=== PATIENT | female | born 1985 | race Caucasian/White ===

== ENCOUNTER → 2021-03-16 | Outpatient (CLI) | payer SELFPAY ==
[2021-03-16 20:08] LABS: ALBUMIN 3.9 GM/DL (3.2-5.2); ALT/SGPT 58 U/L (12-78); BILIRUBIN,TOTAL 0.6 MG/DL (0.2-1.0); BLOOD UREA NITROGEN 12 MG/DL (7-18); CALCIUM LEVEL 9.5 MG/DL (8.5-10.1); CARBON DIOXIDE LEVEL 32 MEQ/L (21-32); CHLORIDE LEVEL 101 MEQ/L (98-107); CREATININE FOR GFR 0.77 MG/DL (0.55-1.30); FREE T4 0.92 NG/DL (0.76-1.46); GLOMERULAR FILTRATION RATE > 60.0 (>60); GLUCOSE, FASTING 96 MG/DL (70-100); POTASSIUM SERUM 4.3 MEQ/L (3.5-5.1); SODIUM LEVEL 138 MEQ/L (136-145); TOTAL PROTEIN 7.8 GM/DL (6.4-8.2)
[2021-03-16 20:09] LABS: HEPATITIS B SURFACE ANTIBODY POSITIVE (POSITIVE)
[2021-03-16 20:20] LABS: HEPATITIS B SURFACE ANTIGEN NEGATIVE (NEGATIVE)
[2021-03-16 20:48] LABS: HEPATITIS C VIRUS ABY INDEX < 0.0 INDEX (<0.8)
[2021-03-16 23:35] LABS: GC DNA AMPLIFICATION NEGATIVE (NEGATIVE)
[2021-03-19 03:07] LABS: % CD8 Pos Lymph 45.4 % (12.0-35.5); %CD4 Pos Lymphs 34.5 % (30.8-58.5); ABS Basophils 0.1 x10E3/uL (0.0-0.2); ABS Eosinophils 0.1 x10E3/uL (0.0-0.4); ABS Lymphs 2.8 x10E3/uL (0.7-3.1); ABS Monocytes 0.6 x10E3/uL (0.1-0.9); ABS Neutophils 5.8 x10E3/uL (1.4-7.0); Abs CD4 Helper 966 /uL (359-1519); Abs CD8 Suppres 1271 /uL (109-897); CD4/CD8 Ratio 0.76 (0.92-3.72); Eosinophils 1 % (Not Estab.); HCT 43.3 % (34.0-46.6); HEPATITIS A IgG TOTAL Positive (Negative); HEPATITIS B CORE ANTIBODY IGG Negative (Negative); HGB 14.7 g/dL (11.1-15.9); HIV-1 RNA PCR QUANT 2 LC550285 <20 copies/mL (.); Immature Grans 0 % (Not Estab.); Lymphocytes 30 % (Not Estab.); MCH 33.5 pg (26.6-33.0); MCHC 33.9 g/dL (31.5-35.7); MCV 99 fL (79-97); Monocytes 7 % (Not Estab.); Neutrophils 61 % (Not Estab.); Platelets 317 x10E3/uL (150-450); RBC 4.39 x10E6/uL (3.77-5.28); RDW 12.7 % (11.7-15.4); WBC 9.4 x10E3/uL (3.4-10.8)
== END ==
LOC: M PLALAB 13:03
PROVIDERS: ATTEND Internal Medicine Infectious Disease
DX: B20 Human immunodeficiency virus [HIV] disease (principal)

== ENCOUNTER 2021-06-16 19:07 | Emergency (ER) | payer MEDICARE, SELFPAY ==
[~2021-06-16] VITALS: Ht 162.6 cm; Wt 118.2 kg
[2021-06-16] MEDS ORDERED: ONDANSETRON 4MG/2ML VIAL IV ONE (22:15)
[2021-06-16] MEDS ORDERED: KETOROLAC 30 MG/ML 1ML VIAL IV ONE (22:15)
[2021-06-16 22:45] LABS: BASO % 0.5 % (0.0-1.0); EOS # 0.1 10^3/uL (0.0-0.5); EOS % 1.1 % (0.0-3.0); HEMATOCRIT 40.3 % (36.0-47.0); LYMPH # 2.6 10^3/uL (1.5-5.0); LYMPH % 32.8 % (24.0-44.0); MEAN CORPUSCULAR HEMOGLOBIN 33.4 pg (27.0-33.0); MEAN CORPUSCULAR HGB CONC 32.3 g/dl (32.0-36.5); MEAN CORPUSCULAR VOLUME 103.6 fl (80.0-96.0); MONO # 0.5 10^3/uL (0.0-0.8); MONO % 6.7 % (2.0-8.0); NEUTROPHILS # 4.6 10^3/uL (1.5-8.5); NEUTROPHILS % 58.8 % (36.0-66.0); PLATELET COUNT, AUTOMATED 263 10^3/uL (150-450); RED BLOOD COUNT 3.89 10^6/uL (4.00-5.40); WHITE BLOOD COUNT 7.9 10^3/uL (4.0-10.0)
[2021-06-16 23:09] LABS: ALBUMIN 3.5 GM/DL (3.2-5.2); ALT/SGPT 45 U/L (12-78); BILIRUBIN,DIRECT 0.1 MG/DL (0.0-0.2); BILIRUBIN,TOTAL 0.3 MG/DL (0.2-1.0); BLOOD UREA NITROGEN 8 MG/DL (7-18); CALCIUM LEVEL 8.4 MG/DL (8.5-10.1); CARBON DIOXIDE LEVEL 30 MEQ/L (21-32); CHLORIDE LEVEL 102 MEQ/L (98-107); CREATININE FOR GFR 0.69 MG/DL (0.55-1.30); GLOMERULAR FILTRATION RATE > 60.0 (>60); GLUCOSE, FASTING 108 MG/DL (70-100); LIPASE 78 U/L (73-393); POTASSIUM SERUM 3.8 MEQ/L (3.5-5.1); SODIUM LEVEL 138 MEQ/L (136-145); TOTAL PROTEIN 7.2 GM/DL (6.4-8.2)
[2021-06-16 23:26] LABS: HCG, SERUM QUALITATIVE NEGATIVE (NEGATIVE)
[2021-06-17 00:09] LABS: GC DNA AMPLIFICATION NEGATIVE (NEGATIVE)
[2021-06-17 00:45] VITALS: BP 135/71
== END 2021-06-17 01:04 | disposition home or self-care (01) ==
LOC: M ED 19:07
DX: R10.2 Pelvic and perineal pain (principal); B20 Human immunodeficiency virus [HIV] disease; E66.9 Obesity, unspecified; F31.9 Bipolar disorder, unspecified; N83.291 Other ovarian cyst, right side; Z88.8 Allergy status to other drugs, medicaments and biological substances
CPT/HCPCS: 76856; 80048; 80076; 81001; 83690; 84703; 85025; 87210; 87808; 87810; 87850; 93976; 96374; 96375; 99284; J1885; J2405

== ENCOUNTER → 2021-10-12 | Outpatient (CLI) | payer MEDICARE ==
[2021-10-12 16:15] LABS: BASO # 0.1 10^3/uL (0.0-0.2); BASO % 0.6 % (0.0-1.0); EOS # 0.1 10^3/uL (0.0-0.5); EOS % 0.8 % (0.0-3.0); HEMATOCRIT 41.6 % (36.0-47.0); HEMOGLOBIN 13.3 g/dl (12.0-15.5); LYMPH # 2.8 10^3/uL (1.5-5.0); LYMPH % 32.2 % (24.0-44.0); MEAN CORPUSCULAR HEMOGLOBIN 33.6 pg (27.0-33.0); MEAN CORPUSCULAR VOLUME 105.1 fl (80.0-96.0); MONO # 0.5 10^3/uL (0.0-0.8); MONO % 6.1 % (2.0-8.0); NEUTROPHILS # 5.1 10^3/uL (1.5-8.5); NEUTROPHILS % 59.9 % (36.0-66.0); PLATELET COUNT, AUTOMATED 304 10^3/uL (150-450); RED BLOOD COUNT 3.96 10^6/uL (4.00-5.40); WHITE BLOOD COUNT 8.5 10^3/uL (4.0-10.0)
[2021-10-12 16:49] LABS: ALBUMIN 3.7 GM/DL (3.2-5.2); ALT/SGPT 37 U/L (12-78); BILIRUBIN,TOTAL 0.3 MG/DL (0.2-1.0); BLOOD UREA NITROGEN 10 MG/DL (7-18); CALCIUM LEVEL 9.4 MG/DL (8.5-10.1); CARBON DIOXIDE LEVEL 29 MEQ/L (21-32); CHLORIDE LEVEL 105 MEQ/L (98-107); CREATININE FOR GFR 0.68 MG/DL (0.55-1.30); FERRITIN 47 NG/ML (8-252); FREE T4 0.85 NG/DL (0.76-1.46); GLOMERULAR FILTRATION RATE > 60.0 (>60); GLUCOSE, FASTING 90 MG/DL (70-100); POTASSIUM SERUM 4.1 MEQ/L (3.5-5.1); SODIUM LEVEL 140 MEQ/L (136-145); TOTAL PROTEIN 7.6 GM/DL (6.4-8.2)
[2021-10-12 16:50] LABS: TOTAL 25(OH) VITAMIN D 18.7 NG/ML (30.0-100.0); VITAMIN B12 LEVEL 291 PG/ML (247-911)
== END ==
LOC: M PLALAB 13:05
PROVIDERS: ATTEND Internal Medicine Hematology
DX: F31.4 Bipolar disorder, current episode depressed, severe, without psychotic features (principal); B20 Human immunodeficiency virus [HIV] disease; Z79.899 Other long term (current) drug therapy

== ENCOUNTER → 2021-10-12 | Outpatient (CLI) | payer MEDICARE ==
[2021-10-12 16:12] LABS: APPEARANCE, URINE CLEAR (CLEAR); BACTERIA, URINE AUTO NEGATIVE (NEGATIVE); BILIRUBIN, URINE AUTO NEGATIVE (NEGATIVE); BLOOD, URINE BLOOD NEGATIVE (NEGATIVE); COLOR, URINE YELLOW (YELLOW); GLUCOSE, URINE (UA) AUTO NEGATIVE (NEGATIVE); KETONE, URINE AUTO NEGATIVE (NEGATIVE); LEUKOCYTE ESTERASE, URINE AUTO NEGATIVE (NEGATIVE); NITRITE, URINE AUTO NEGATIVE (NEGATIVE); PROTEIN, URINE AUTO NEGATIVE (NEGATIVE); RBC, URINE AUTO 1 /HPF (0-3); SPECIFIC GRAVITY URINE AUTO 1.018 (1.002-1.035); SQUAMOUS EPITHELIAL CELL UR AU 1 /HPF (0-6); UROBILINOGEN, URINE AUTO 0.2 mg/dL (0.0-2.0); WBC, URINE AUTO 0 /HPF (0-3)
[2021-10-12 17:49] LABS: GC DNA AMPLIFICATION NEGATIVE (NEGATIVE)
[2021-10-16 07:08] LABS: % CD8 Pos Lymph 44.1 % (12.0-35.5); %CD4 Pos Lymphs 37.2 % (30.8-58.5); ABS Eosinophils 0.1 x10E3/uL (0.0-0.4); ABS Lymphs 2.6 x10E3/uL (0.7-3.1); ABS Monocytes 0.5 x10E3/uL (0.1-0.9); ABS Neutophils 4.9 x10E3/uL (1.4-7.0); Abs CD4 Helper 967 /uL (359-1519); Abs CD8 Suppres 1147 /uL (109-897); CD4/CD8 Ratio 0.84 (0.92-3.72); Eosinophils 1 % (Not Estab.); HCT 39.8 % (34.0-46.6); HGB 13.3 g/dL (11.1-15.9); HIV-1 RNA PCR QUANT 2 LC550285 <20 copies/mL (.); Immature Grans 0 % (Not Estab.); Lymphocytes 32 % (Not Estab.); MCH 33.6 pg (26.6-33.0); MCHC 33.4 g/dL (31.5-35.7); MCV 101 fL (79-97); Monocytes 6 % (Not Estab.); Neutrophils 60 % (Not Estab.); Platelets 313 x10E3/uL (150-450); RBC 3.96 x10E6/uL (3.77-5.28); RDW 12.4 % (11.7-15.4); WBC 8.1 x10E3/uL (3.4-10.8)
== END ==
LOC: M PLALAB 13:08
PROVIDERS: ATTEND Internal Medicine Infectious Disease
DX: B20 Human immunodeficiency virus [HIV] disease (principal); R30.0 Dysuria

== ENCOUNTER 2021-11-06 17:16 | Emergency (ER) | payer MEDICARE ==
[~2021-11-06] VITALS: Ht 162.6 cm; Wt 114.2 kg
[2021-11-06 22:33] VITALS: BP 116/67
== END 2021-11-06 22:35 | disposition home or self-care (01) ==
LOC: M ED 17:16
DX: S61.218A Laceration without foreign body of other finger without damage to nail, initial encounter (principal); W26.0XXA Contact with knife, initial encounter; Y92.89 Other specified places as the place of occurrence of the external cause; Y99.0 Civilian activity done for income or pay; B20 Human immunodeficiency virus [HIV] disease; F90.9 Attention-deficit hyperactivity disorder, unspecified type; Z88.8 Allergy status to other drugs, medicaments and biological substances

== ENCOUNTER 2021-11-12 21:20 | Emergency (ER) | payer MEDICARE ==
[~2021-11-12] VITALS: Ht 162.6 cm; Wt 113.6 kg
[2021-11-12] MEDS ORDERED: DULO1CAP5 PO (23:11)
[2021-11-12] MEDS ORDERED: TRAZ-252 PO (23:11)
[2021-11-12] MEDS ORDERED: CLON0.5T2 PO (23:11)
[2021-11-12] MEDS ORDERED: BIKT1TAB PO (23:11)
[2021-11-13 01:39] VITALS: BP 118/58
== END 2021-11-13 01:41 | disposition home or self-care (01) ==
LOC: M ED 21:20
DX: F41.0 Panic disorder [episodic paroxysmal anxiety] (principal); B20 Human immunodeficiency virus [HIV] disease; Z88.8 Allergy status to other drugs, medicaments and biological substances

== ENCOUNTER 2021-12-05 07:48 | Emergency (ER) | payer MEDICARE ==
[~2021-12-05] VITALS: Ht 165.1 cm; Wt 115.7 kg
[~2021-12-05 07:48] MED LIST: BIKT1TAB PO; CLON0.5T2 PO; DULO1CAP5 PO; TRAZ-252 PO
[2021-12-05] MEDS ORDERED: NS 1,000 ML IV ONE (09:25)
[2021-12-05 10:14] LABS: BASO % 0.4 % (0.0-1.0); EOS # 0.1 10^3/uL (0.0-0.5); EOS % 1.1 % (0.0-3.0); HEMATOCRIT 39.7 % (36.0-47.0); LYMPH % 30.6 % (24.0-44.0); MEAN CORPUSCULAR HEMOGLOBIN 34.7 pg (27.0-33.0); MEAN CORPUSCULAR HGB CONC 32.7 g/dl (32.0-36.5); MEAN CORPUSCULAR VOLUME 105.9 fl (80.0-96.0); MONO # 0.6 10^3/uL (0.0-0.8); MONO % 6.2 % (2.0-8.0); NEUTROPHILS # 5.9 10^3/uL (1.5-8.5); NEUTROPHILS % 61.4 % (36.0-66.0); PLATELET COUNT, AUTOMATED 276 10^3/uL (150-450); RED BLOOD COUNT 3.75 10^6/uL (4.00-5.40); WHITE BLOOD COUNT 9.7 10^3/uL (4.0-10.0)
[2021-12-05 10:42] LABS: CK-MB VALUE MASS 2.7 NG/ML (<3.6); MB/CK RELATIVE INDEX 0.95 (< OR =4)
[2021-12-05 12:10] LABS: GC DNA AMPLIFICATION NEGATIVE (NEGATIVE)
[2021-12-05 12:43] VITALS: BP 128/80
== END 2021-12-05 12:46 | disposition home or self-care (01) ==
LOC: M ED 07:48
DX: R10.2 Pelvic and perineal pain (principal); R07.9 Chest pain, unspecified; B20 Human immunodeficiency virus [HIV] disease; Z79.899 Other long term (current) drug therapy; Z88.8 Allergy status to other drugs, medicaments and biological substances

== ENCOUNTER 2021-12-19 18:41 | Emergency (ER) | payer MEDICARE ==
[~2021-12-19] VITALS: Ht 162.6 cm; Wt 113.6 kg
[2021-12-19 18:42] VITALS: BP 126/71
[2021-12-19 20:34] LABS: BASO # 0.1 10^3/uL (0.0-0.2); BASO % 0.7 % (0.0-1.0); EOS # 0.1 10^3/uL (0.0-0.5); EOS % 1.5 % (0.0-3.0); HEMATOCRIT 39.7 % (36.0-47.0); HEMOGLOBIN 12.8 g/dl (12.0-15.5); LYMPH # 2.8 10^3/uL (1.5-5.0); LYMPH % 32.2 % (24.0-44.0); MEAN CORPUSCULAR HEMOGLOBIN 34.4 pg (27.0-33.0); MEAN CORPUSCULAR HGB CONC 32.2 g/dl (32.0-36.5); MEAN CORPUSCULAR VOLUME 106.7 fl (80.0-96.0); MONO # 0.6 10^3/uL (0.0-0.8); MONO % 6.7 % (2.0-8.0); NEUTROPHILS # 5.2 10^3/uL (1.5-8.5); NEUTROPHILS % 58.7 % (36.0-66.0); PLATELET COUNT, AUTOMATED 258 10^3/uL (150-450); RED BLOOD COUNT 3.72 10^6/uL (4.00-5.40); WHITE BLOOD COUNT 8.8 10^3/uL (4.0-10.0)
[2021-12-19 20:59] LABS: ALBUMIN 3.4 GM/DL (3.2-5.2); ALT/SGPT 35 U/L (12-78); BILIRUBIN,DIRECT < 0.1 MG/DL (0.0-0.2); BILIRUBIN,TOTAL 0.2 MG/DL (0.2-1.0); LIPASE 98 U/L (73-393); TOTAL PROTEIN 7.1 GM/DL (6.4-8.2)
== END 2021-12-19 21:23 | disposition home or self-care (01) ==
LOC: M ED 18:41
DX: R11.2 Nausea with vomiting, unspecified (principal); M54.50 Low back pain, unspecified; E66.9 Obesity, unspecified; Z79.899 Other long term (current) drug therapy; Z88.8 Allergy status to other drugs, medicaments and biological substances

== ENCOUNTER 2021-12-24 17:41 | Emergency (ER) | payer MEDICARE ==
[~2021-12-24] VITALS: Ht 162.6 cm; Wt 118.0 kg
[2021-12-24 17:41] VITALS: BP 114/60
== END 2021-12-24 22:07 | disposition home or self-care (01) ==
LOC: M ED 17:41
DX: F41.0 Panic disorder [episodic paroxysmal anxiety] (principal); B20 Human immunodeficiency virus [HIV] disease; F31.9 Bipolar disorder, unspecified; F44.5 Conversion disorder with seizures or convulsions; F19.10 Other psychoactive substance abuse, uncomplicated; Z79.899 Other long term (current) drug therapy; Z88.8 Allergy status to other drugs, medicaments and biological substances

== ENCOUNTER 2022-02-13 14:01 | Emergency (ER) | payer MEDICARE ==
[~2022-02-13] VITALS: Ht 162.6 cm; Wt 115.0 kg
[2022-02-13] MEDS ORDERED: NS 1,000 ML IV ONE (15:05)
[2022-02-13] MEDS ORDERED: diphenhydrAMINE 50MG/ML VIAL (J1200) IV ONE (15:05)
[2022-02-13] MEDS ORDERED: KETOROLAC 30 MG/ML 1ML VIAL IM ONE (15:05)
[2022-02-13] MEDS ORDERED: METOCLOPRAMIDE INJ 10MG/2ML VIAL (J2765 PER 1) IV ONE (15:05)
[2022-02-13 15:25] LABS: RSV AMPLIFICATION NEGATIVE (NEGATIVE)
[2022-02-13 16:30] VITALS: BP 99/53
== END 2022-02-13 16:32 | disposition home or self-care (01) ==
LOC: M ED 14:01
DX: G43.909 Migraine, unspecified, not intractable, without status migrainosus (principal); B20 Human immunodeficiency virus [HIV] disease; J30.2 Other seasonal allergic rhinitis; F90.9 Attention-deficit hyperactivity disorder, unspecified type; F41.0 Panic disorder [episodic paroxysmal anxiety]; F31.9 Bipolar disorder, unspecified; F10.11 Alcohol abuse, in remission; Z79.899 Other long term (current) drug therapy; Z88.8 Allergy status to other drugs, medicaments and biological substances
CPT/HCPCS: 87631; 90471; 96361; 96374; 96375; 99284; J1200; J1885; J2765

== ENCOUNTER 2022-04-16 08:26 | Emergency (ER) | payer MEDICARE ==
[~2022-04-16] VITALS: Ht 162.6 cm; Wt 109.1 kg
[2022-04-16] MEDS ORDERED: IBUP200C25 PO (08:39)
[2022-04-16 12:48] VITALS: BP 113/74
== END 2022-04-16 12:49 | disposition home or self-care (01) ==
LOC: M ED 08:26
DX: R20.2 Paresthesia of skin (principal); H52.531 Spasm of accommodation, right eye; B20 Human immunodeficiency virus [HIV] disease; R56.9 Unspecified convulsions; F19.10 Other psychoactive substance abuse, uncomplicated; Z86.73 Personal history of transient ischemic attack (TIA), and cerebral infarction without residual deficits; Z82.49 Family history of ischemic heart disease and other diseases of the circulatory system; Z82.3 Family history of stroke; Z83.3 Family history of diabetes mellitus; Z88.8 Allergy status to other drugs, medicaments and biological substances

== ENCOUNTER 2022-05-04 15:41 | Emergency (ER) | payer MEDICARE ==
[~2022-05-04] VITALS: Ht 162.6 cm; Wt 116.3 kg
[~2022-05-04 15:41] MED LIST changes: +IBUP200C25 PO
[2022-05-04 17:38] VITALS: BP 116/80
== END 2022-05-04 17:39 | disposition home or self-care (01) ==
LOC: M ED 15:41
DX: K08.89 Other specified disorders of teeth and supporting structures (principal); Z88.8 Allergy status to other drugs, medicaments and biological substances; Z79.899 Other long term (current) drug therapy

== ENCOUNTER 2022-05-28 15:08 | Emergency (ER) | payer MEDICARE ==
[~2022-05-28] VITALS: Ht 162.6 cm; Wt 114.3 kg
[2022-05-28 21:14] VITALS: BP 127/63
[2022-05-28] MEDS ORDERED: NITROFURANTOIN (MACROBID) 100 MG CAP PO ONE (21:25)
[2022-05-28 21:47] LABS: BASO % 0.3 % (0.0-1.0); EOS # 0.1 10^3/uL (0.0-0.5); EOS % 1.2 % (0.0-3.0); HEMATOCRIT 43.6 % (36.0-47.0); HEMOGLOBIN 13.6 g/dl (12.0-15.5); LYMPH # 2.6 10^3/uL (1.5-5.0); LYMPH % 29.7 % (24.0-44.0); MEAN CORPUSCULAR HEMOGLOBIN 33.5 pg (27.0-33.0); MEAN CORPUSCULAR HGB CONC 31.2 g/dl (32.0-36.5); MEAN CORPUSCULAR VOLUME 107.4 fl (80.0-96.0); MONO # 0.5 10^3/uL (0.0-0.8); MONO % 6.3 % (2.0-8.0); NEUTROPHILS # 5.4 10^3/uL (1.5-8.5); NEUTROPHILS % 62.3 % (36.0-66.0); PLATELET COUNT, AUTOMATED 272 10^3/uL (150-450); RED BLOOD COUNT 4.06 10^6/uL (4.00-5.40); WHITE BLOOD COUNT 8.6 10^3/uL (4.0-10.0)
[2022-05-28] MEDS ORDERED: MACR100C43 PO (22:04)
== END 2022-05-28 22:11 | disposition home or self-care (01) ==
LOC: M ED 15:08
DX: N30.00 Acute cystitis without hematuria (principal); B20 Human immunodeficiency virus [HIV] disease; F31.9 Bipolar disorder, unspecified; Z88.8 Allergy status to other drugs, medicaments and biological substances

== ENCOUNTER 2022-06-19 13:54 | Emergency (ER) | payer MEDICARE ==
[~2022-06-19] VITALS: Ht 162.6 cm; Wt 114.1 kg
[~2022-06-19 13:54] MED LIST changes: +MACR100C43 PO
[2022-06-19] MEDS ORDERED: LAMO25TA4 (14:20)
[2022-06-19] MEDS ORDERED: BIKT1TAB (14:20)
[2022-06-19] MEDS ORDERED: DULO1CAP5 (14:20)
[2022-06-19] MEDS ORDERED: KETOROLAC 60MG 2ML VIAL IM ONE (15:15)
[2022-06-19] MEDS ORDERED: LIDOCAINE 5% (LIDODERM) PATCH TD ONE (15:15)
[2022-06-19] MEDS ORDERED: ASPE4PAD TOP (15:55)
[2022-06-19] MEDS ORDERED: BIOF4GEL4 TOP (15:55)
[2022-06-19 16:01] VITALS: BP 123/62
== END 2022-06-19 16:16 | disposition home or self-care (01) ==
LOC: M ED 13:54
DX: M54.9 Dorsalgia, unspecified (principal); M25.512 Pain in left shoulder; M25.552 Pain in left hip

== ENCOUNTER 2022-08-03 10:50 | Emergency (ER) | payer MEDICARE ==
[~2022-08-03] VITALS: Ht 162.6 cm; Wt 109.9 kg
[~2022-08-03 10:50] MED LIST changes: +ASPE4PAD TOP; +BIKT1TAB; +BIOF4GEL4 TOP; +DULO1CAP5; +LAMO25TA4
[2022-08-03] MEDS ORDERED: BUPR-71 (10:59)
[2022-08-03 12:00] LABS: BASO % 0.4 % (0.0-1.0); EOS # 0.1 10^3/uL (0.0-0.5); HEMOGLOBIN 13.5 g/dl (12.0-15.5); LYMPH # 1.8 10^3/uL (1.5-5.0); LYMPH % 26.1 % (24.0-44.0); MEAN CORPUSCULAR HEMOGLOBIN 33.4 pg (27.0-33.0); MEAN CORPUSCULAR HGB CONC 32.1 g/dl (32.0-36.5); MONO # 0.4 10^3/uL (0.0-0.8); MONO % 5.7 % (2.0-8.0); NEUTROPHILS # 4.5 10^3/uL (1.5-8.5); NEUTROPHILS % 66.5 % (36.0-66.0); PLATELET COUNT, AUTOMATED 272 10^3/uL (150-450); RED BLOOD COUNT 4.04 10^6/uL (4.00-5.40); WHITE BLOOD COUNT 6.7 10^3/uL (4.0-10.0)
[2022-08-03 12:31] LABS: ALBUMIN 3.9 G/DL (3.2-5.2); ALKALINE PHOSPHATASE 120 U/L (46-116); ALT/SGPT 35 U/L (7.0-40); AST/SGOT 32 U/L (<34); BILIRUBIN,TOTAL 0.9 MG/DL (0.3-1.2); BLOOD UREA NITROGEN 8 MG/DL (9-23); CALCIUM LEVEL 8.4 MG/DL (8.5-10.1); CARBON DIOXIDE LEVEL 30 MMOL/L (20-31); CHLORIDE LEVEL 102 MMOL/L (98-107); CREATININE FOR GFR 0.69 MG/DL (0.55-1.30); GLOMERULAR FILTRATION RATE > 60.0 (>60); GLUCOSE, FASTING 100 MG/DL (60-100); POTASSIUM SERUM 3.9 MMOL/L (3.5-5.1); SODIUM LEVEL 137 MMOL/L (136-145); THYROID STIMULATING HORMONE 1.023 uIU/ML (0.55-4.78); TOTAL PROTEIN 7.3 G/DL (5.7-8.2)
[2022-08-03 12:35] LABS: HCG, SERUM QUALITATIVE NEGATIVE (NEGATIVE)
[2022-08-03 13:13] VITALS: BP 119/70
== END 2022-08-03 13:14 | disposition home or self-care (01) ==
LOC: M ED 10:50
DX: R53.1 Weakness (principal); B20 Human immunodeficiency virus [HIV] disease; G40.909 Epilepsy, unspecified, not intractable, without status epilepticus; F31.9 Bipolar disorder, unspecified; F41.0 Panic disorder [episodic paroxysmal anxiety]; Z79.899 Other long term (current) drug therapy; Z88.8 Allergy status to other drugs, medicaments and biological substances

== ENCOUNTER 2022-08-31 11:52 | Emergency (ER) | payer MEDICARE ==
[~2022-08-31] VITALS: Ht 162.6 cm; Wt 108.9 kg
[~2022-08-31 11:52] MED LIST changes: +BUPR-71
[2022-08-31] MEDS ORDERED: KETOROLAC 60MG 2ML VIAL IM ONE (12:55)
[2022-08-31] MEDS ORDERED: HYDR-3713 PO (12:56)
[2022-08-31] MEDS ORDERED: LIDO15SO PO (12:56)
[2022-08-31 13:05] VITALS: BP 141/93
== END 2022-08-31 13:09 | disposition home or self-care (01) ==
LOC: M ED 11:52
DX: K08.89 Other specified disorders of teeth and supporting structures (principal); B20 Human immunodeficiency virus [HIV] disease; R56.9 Unspecified convulsions; F31.9 Bipolar disorder, unspecified; F19.10 Other psychoactive substance abuse, uncomplicated; Z79.899 Other long term (current) drug therapy; Z88.8 Allergy status to other drugs, medicaments and biological substances
CPT/HCPCS: 96372; 99283; J1885

== ENCOUNTER 2022-11-27 12:33 | Emergency (ER) | payer MEDICARE ==
[~2022-11-27] VITALS: Ht 162.6 cm; Wt 110.2 kg
[~2022-11-27 12:33] MED LIST changes: +HYDR-3713 PO; +LIDO15SO PO
[2022-11-27 13:16] LABS: BASO % 0.4 % (0.0-1.0); EOS # 0.1 10^3/uL (0.0-0.5); EOS % 1.3 % (0.0-3.0); HEMATOCRIT 39.9 % (36.0-47.0); LYMPH % 29.9 % (24.0-44.0); MEAN CORPUSCULAR HEMOGLOBIN 34.7 pg (27.0-33.0); MEAN CORPUSCULAR HGB CONC 32.6 g/dl (32.0-36.5); MEAN CORPUSCULAR VOLUME 106.4 fl (80.0-96.0); MONO # 0.5 10^3/uL (0.0-0.8); MONO % 7.4 % (2.0-8.0); NEUTROPHILS # 4.1 10^3/uL (1.5-8.5); NEUTROPHILS % 60.6 % (36.0-66.0); PLATELET COUNT, AUTOMATED 264 10^3/uL (150-450); RED BLOOD COUNT 3.75 10^6/uL (4.00-5.40); WHITE BLOOD COUNT 6.8 10^3/uL (4.0-10.0)
[2022-11-27 13:38] LABS: LIPASE 41 U/L (12-53)
[2022-11-27 13:39] LABS: HCG, SERUM QUALITATIVE NEGATIVE (NEGATIVE)
[2022-11-27 13:40] LABS: ALBUMIN 3.7 G/DL (3.2-5.2); ALKALINE PHOSPHATASE 102 U/L (46-116); ALT/SGPT 11 U/L (7.0-40); AST/SGOT 26 U/L (<34); BILIRUBIN,DIRECT 0.2 MG/DL (<0.4); BILIRUBIN,TOTAL 0.6 MG/DL (0.3-1.2); BLOOD UREA NITROGEN 9 MG/DL (9-23); CALCIUM LEVEL 9.3 MG/DL (8.5-10.1); CARBON DIOXIDE LEVEL 28 MMOL/L (20-31); CHLORIDE LEVEL 105 MMOL/L (98-107); CREATININE FOR GFR 0.66 MG/DL (0.55-1.30); GLOMERULAR FILTRATION RATE > 60.0 (>60); GLUCOSE, FASTING 123 MG/DL (60-100); SODIUM LEVEL 139 MMOL/L (136-145); TOTAL PROTEIN 6.8 G/DL (5.7-8.2)
[2022-11-27] MEDS ORDERED: BACT800T5 PO (17:07)
[2022-11-27 17:16] VITALS: BP 139/72; TEMP 97.2; O2SAT 99
== END 2022-11-27 17:18 | disposition home or self-care (01) ==
LOC: M ED 12:33
DX: N39.0 Urinary tract infection, site not specified (principal); R10.9 Unspecified abdominal pain; Z86.73 Personal history of transient ischemic attack (TIA), and cerebral infarction without residual deficits; R56.9 Unspecified convulsions; R01.1 Cardiac murmur, unspecified; F31.9 Bipolar disorder, unspecified; F41.9 Anxiety disorder, unspecified; F32.A Depression, unspecified; Z79.899 Other long term (current) drug therapy; Z88.8 Allergy status to other drugs, medicaments and biological substances

== ENCOUNTER → 2023-02-14 | Outpatient (CLI) | payer MEDICARE ==
[~2023-02-14] MED LIST changes: +BACT800T5 PO
[2023-02-14 16:27] LABS: TOTAL 25(OH) VITAMIN D 21.1 NG/ML (20.0-100.0)
[2023-02-14 16:34] LABS: ALBUMIN 4.2 G/DL (3.2-5.2); ALKALINE PHOSPHATASE 113 U/L (46-116); ALT/SGPT 29 U/L (7.0-40); AST/SGOT 20 U/L (<34); BILIRUBIN,TOTAL 0.6 MG/DL (0.3-1.2); BLOOD UREA NITROGEN 12 MG/DL (9-23); CALCIUM LEVEL 9.8 MG/DL (8.5-10.1); CARBON DIOXIDE LEVEL 32 MMOL/L (20-31); CHLORIDE LEVEL 102 MMOL/L (98-107); CREATININE FOR GFR 0.69 MG/DL (0.55-1.30); GLOMERULAR FILTRATION RATE > 60.0 (>60); GLUCOSE, FASTING 63 MG/DL (60-100); POTASSIUM SERUM 4.7 MMOL/L (3.5-5.1); SODIUM LEVEL 138 MMOL/L (136-145); TOTAL PROTEIN 7.8 G/DL (5.7-8.2)
[2023-02-14 16:59] LABS: HEPATITIS C VIRUS ABY INDEX 0.12 INDEX (<0.8)
[2023-02-14 17:31] LABS: GC DNA AMPLIFICATION NEGATIVE (NEGATIVE)
[2023-02-17 04:08] LABS: % CD8 Pos Lymph 47.4 % (12.0-35.5); %CD4 Pos Lymphs 35.6 % (30.8-58.5); ABS Basophils 0.1 x10E3/uL (0.0-0.2); ABS Eosinophils 0.1 x10E3/uL (0.0-0.4); ABS Lymphs 2.9 x10E3/uL (0.7-3.1); ABS Monocytes 0.6 x10E3/uL (0.1-0.9); ABS Neutophils 4.9 x10E3/uL (1.4-7.0); Abs CD4 Helper 1032 /uL (359-1519); Abs CD8 Suppres 1375 /uL (109-897); CD4/CD8 Ratio 0.75 (0.92-3.72); Eosinophils 1 % (Not Estab.); HGB 14.5 g/dL (11.1-15.9); HIV-1 RNA PCR QUANT 2 LC550285 40 copies/mL (.); HIV-1 RNA PCR QUANT 3 LC550285 1.602 (.); Immature Grans 0 % (Not Estab.); Lymphocytes 34 % (Not Estab.); MCH 33.3 pg (26.6-33.0); MCHC 32.2 g/dL (31.5-35.7); MCV 103 fL (79-97); Monocytes 7 % (Not Estab.); Neutrophils 57 % (Not Estab.); Platelets 304 x10E3/uL (150-450); RBC 4.35 x10E6/uL (3.77-5.28); RDW 11.8 % (11.7-15.4); WBC 8.6 x10E3/uL (3.4-10.8)
== END ==
LOC: M PLALAB 12:25
PROVIDERS: ATTEND Internal Medicine Infectious Disease
DX: B20 Human immunodeficiency virus [HIV] disease (principal); E55.9 Vitamin D deficiency, unspecified

== ENCOUNTER 2023-03-09 11:24 | Emergency (ER) | payer MEDICARE ==
[~2023-03-09] VITALS: Ht 162.6 cm; Wt 110.5 kg
[2023-03-09 15:59] VITALS: BP 122/82; TEMP 96.4; O2SAT 99
== END 2023-03-09 16:01 | disposition home or self-care (01) ==
LOC: M ED 11:24
DX: S33.5XXA Sprain of ligaments of lumbar spine, initial encounter (principal); W10.8XXA Fall (on) (from) other stairs and steps, initial encounter; M54.50 Low back pain, unspecified; Z88.6 Allergy status to analgesic agent; Z88.8 Allergy status to other drugs, medicaments and biological substances; Z79.899 Other long term (current) drug therapy

== ENCOUNTER 2023-05-30 07:27 | Emergency (ER) | payer MEDICARE ==
[~2023-05-30] VITALS: Ht 162.6 cm; Wt 113.1 kg
[2023-05-30] MEDS ORDERED: ADDE1TAB14 PO (07:33)
[2023-05-30 07:47] VITALS: BP 125/66; TEMP 97.9; O2SAT 96
[2023-05-30] MEDS ORDERED: NAPR220C14 PO (08:48)
== END 2023-05-30 09:15 | disposition home or self-care (01) ==
LOC: M ED 07:27
DX: S80.911A Unspecified superficial injury of right knee, initial encounter (principal); W19.XXXA Unspecified fall, initial encounter; M25.561 Pain in right knee; F90.9 Attention-deficit hyperactivity disorder, unspecified type; F31.9 Bipolar disorder, unspecified; G40.909 Epilepsy, unspecified, not intractable, without status epilepticus; Z21 Asymptomatic human immunodeficiency virus [HIV] infection status; Z88.8 Allergy status to other drugs, medicaments and biological substances; Y92.410 Unspecified street and highway as the place of occurrence of the external cause; Y93.89 Activity, other specified; Y99.9 Unspecified external cause status; Z79.1 Long term (current) use of non-steroidal anti-inflammatories (NSAID); Z79.899 Other long term (current) drug therapy

== ENCOUNTER → 2023-09-20 | Outpatient (CLI) | payer MEDICARE ==
[~2023-09-20] MED LIST changes: +ADDE1TAB14 PO; -LIDO15SO PO; +LIDO15SO8 PO; +NAPR220C14 PO
[2023-09-20 14:02] LABS: ALBUMIN 3.9 G/DL (3.2-5.2); ALKALINE PHOSPHATASE 114 U/L (46-116); ALT/SGPT 26 U/L (7.0-40); AST/SGOT 18 U/L (<34); BILIRUBIN,TOTAL 0.4 MG/DL (0.3-1.2); BLOOD UREA NITROGEN 9 MG/DL (9-23); CARBON DIOXIDE LEVEL 33 MMOL/L (20-31); CHLORIDE LEVEL 102 MMOL/L (98-107); CHOLESTEROL LEVEL 162 MG/DL (<200); CHOLESTEROL RISK RATIO 3.82 (<5); CREATININE FOR GFR 0.65 MG/DL (0.55-1.30); GLOMERULAR FILTRATION RATE > 60.0 (>60); GLUCOSE, FASTING 80 MG/DL (60-100); HDL CHOLESTEROL 42.4 MG/DL (>40); LDL CHOLESTEROL 97.4 MG/DL (<100); NON-HDL-C 119.6 MG/DL; POTASSIUM SERUM 4.2 MMOL/L (3.5-5.1); SODIUM LEVEL 139 MMOL/L (136-145); TRIGLYCERIDES LEVEL 111 MG/DL (<150)
[2023-09-20 14:04] LABS: THYROID STIMULATING HORMONE 0.969 uIU/ML (0.55-4.78)
[2023-09-20 14:17] LABS: HEMOGLOBIN A1c 5.2 % (4.0-6.0)
[2023-09-22 13:18] LABS: % CD8 Pos Lymph 46.7 % (12.0-35.5); %CD4 Pos Lymphs 37.5 % (30.8-58.5); ABS Basophils 0.1 x10E3/uL (0.0-0.2); ABS Eosinophils 0.1 x10E3/uL (0.0-0.4); ABS Lymphs 2.8 x10E3/uL (0.7-3.1); ABS Monocytes 0.5 x10E3/uL (0.1-0.9); ABS Neutophils 4.3 x10E3/uL (1.4-7.0); Abs CD4 Helper 1050 /uL (359-1519); Abs CD8 Suppres 1308 /uL (109-897); Eosinophils 1 % (Not Estab.); HGB 13.5 g/dL (11.1-15.9); HIV-1 RNA PCR QUANT 2 LC550285 <20 copies/mL (.); Immature Grans 0 % (Not Estab.); Lymphocytes 36 % (Not Estab.); MCH 34.3 pg (26.6-33.0); MCHC 33.8 g/dL (31.5-35.7); MCV 102 fL (79-97); Monocytes 6 % (Not Estab.); Neutrophils 56 % (Not Estab.); Platelets 298 x10E3/uL (150-450); RBC 3.94 x10E6/uL (3.77-5.28); RDW 11.9 % (11.7-15.4); WBC 7.7 x10E3/uL (3.4-10.8)
== END ==
LOC: M PLALAB 09:10
PROVIDERS: ATTEND Internal Medicine Infectious Disease
DX: B20 Human immunodeficiency virus [HIV] disease (principal); R63.5 Abnormal weight gain; Z79.899 Other long term (current) drug therapy

== ENCOUNTER → 2023-10-04 | Outpatient (CLI) | payer MEDICARE | LOC: M RAD 08:05 | PROVIDERS: ATTEND Internal Medicine Infectious Disease | DX: K80.20 Calculus of gallbladder without cholecystitis without obstruction (principal); K76.0 Fatty (change of) liver, not elsewhere classified; R10.10 Upper abdominal pain, unspecified ==

== ENCOUNTER 2023-11-01 15:02 | Emergency (ER) | payer MEDICARE ==
[~2023-11-01] VITALS: Ht 167.6 cm; Wt 113.2 kg
[2023-11-01] MEDS ORDERED: ERGO500029 (15:15)
[2023-11-01 16:12] LABS: BASO # 0.1 10^3/uL (0.0-0.2); BASO % 0.7 % (0.0-1.0); EOS # 0.1 10^3/uL (0.0-0.5); EOS % 1.3 % (0.0-3.0); HEMATOCRIT 42.2 % (36.0-47.0); HEMOGLOBIN 13.8 g/dl (12.0-15.5); LYMPH % 29.8 % (24.0-44.0); MEAN CORPUSCULAR HEMOGLOBIN 34.4 pg (27.0-33.0); MEAN CORPUSCULAR HGB CONC 32.7 g/dl (32.0-36.5); MEAN CORPUSCULAR VOLUME 105.2 fl (80.0-96.0); MONO # 0.5 10^3/uL (0.0-0.8); MONO % 7.8 % (2.0-8.0); NEUTROPHILS # 4.1 10^3/uL (1.5-8.5); NEUTROPHILS % 60.1 % (36.0-66.0); PLATELET COUNT, AUTOMATED 272 10^3/uL (150-450); RED BLOOD COUNT 4.01 10^6/uL (4.00-5.40); WHITE BLOOD COUNT 6.8 10^3/uL (4.0-10.0)
[2023-11-01 16:29] LABS: BLOOD UREA NITROGEN 10 MG/DL (9-23); CARBON DIOXIDE LEVEL 33 MMOL/L (20-31); CHLORIDE LEVEL 103 MMOL/L (98-107); CREATININE FOR GFR 0.66 MG/DL (0.55-1.30); GLOMERULAR FILTRATION RATE > 60.0 (>60); GLUCOSE, FASTING 122 MG/DL (60-100); POTASSIUM SERUM 4.1 MMOL/L (3.5-5.1); SODIUM LEVEL 140 MMOL/L (136-145)
[2023-11-01 17:46] VITALS: BP 126/60; TEMP 98; O2SAT 98
[2023-11-01] MEDS ORDERED: MACR100C43 PO (18:05)
== END 2023-11-01 18:10 | disposition home or self-care (01) ==
LOC: M ED 15:02
DX: N39.0 Urinary tract infection, site not specified (principal); R53.81 Other malaise; Z21 Asymptomatic human immunodeficiency virus [HIV] infection status; Z88.6 Allergy status to analgesic agent; Z88.8 Allergy status to other drugs, medicaments and biological substances; Z79.899 Other long term (current) drug therapy; Z79.2 Long term (current) use of antibiotics; Z79.811 Long term (current) use of aromatase inhibitors

== ENCOUNTER 2024-04-04 09:35 | Emergency (ER) | payer OTHER, MEDICARE ==
[~2024-04-04] VITALS: Ht 162.6 cm; Wt 111.9 kg
[~2024-04-04 09:35] MED LIST changes: +ERGO500029
[2024-04-04] MEDS ORDERED: BUSP10TA (09:56)
[2024-04-04 11:45] VITALS: BP 120/67; TEMP 97.1; O2SAT 99
[2024-04-04] MEDS ORDERED: METH-1165 PO (12:13)
[2024-04-04] MEDS ORDERED: NAPR-837 PO (12:13)
== END 2024-04-04 12:20 | disposition home or self-care (01) ==
LOC: M ED 09:35
DX: S23.3XXA Sprain of ligaments of thoracic spine, initial encounter (principal); V49.50XA Passenger injured in collision with unspecified motor vehicles in traffic accident, initial encounter; R51.9 Headache, unspecified; G40.909 Epilepsy, unspecified, not intractable, without status epilepticus; F31.9 Bipolar disorder, unspecified; F90.9 Attention-deficit hyperactivity disorder, unspecified type; Y92.410 Unspecified street and highway as the place of occurrence of the external cause; Y93.89 Activity, other specified; Y99.9 Unspecified external cause status; Z79.1 Long term (current) use of non-steroidal anti-inflammatories (NSAID); Z79.899 Other long term (current) drug therapy; Z88.8 Allergy status to other drugs, medicaments and biological substances

== ENCOUNTER → 2024-04-27 | Outpatient (CLI) | payer MEDICARE ==
[~2024-04-27] MED LIST changes: +BUSP10TA; +METH-1165 PO; +NAPR-837 PO
[2024-04-27 16:23] LABS: ALBUMIN 3.8 G/DL (3.2-5.2); ALKALINE PHOSPHATASE 116 U/L (35-104); ALT/SGPT 28 U/L (7.0-40); AST/SGOT 16 U/L (<34); BILIRUBIN,TOTAL 0.6 MG/DL (0.3-1.2); BLOOD UREA NITROGEN 12 MG/DL (9-23); CALCIUM LEVEL 9.5 MG/DL (8.5-10.1); CARBON DIOXIDE LEVEL 30 MMOL/L (20-31); CHLORIDE LEVEL 103 MMOL/L (98-107); CHOLESTEROL LEVEL 183 MG/DL (<200); CHOLESTEROL RISK RATIO 4.18 (<5); CREATININE FOR GFR 0.68 MG/DL (0.55-1.30); GLOMERULAR FILTRATION RATE > 60.0 (>58); GLUCOSE, FASTING 135 MG/DL (60-100); HDL CHOLESTEROL 43.7 MG/DL (>40); LDL CHOLESTEROL 109.9 MG/DL (<100); NON-HDL-C 139.3 MG/DL; POTASSIUM SERUM 3.9 MMOL/L (3.5-5.1); SODIUM LEVEL 141 MMOL/L (136-145); TOTAL PROTEIN 7.5 G/DL (5.7-8.2); TRIGLYCERIDES LEVEL 147 MG/DL (<150)
[2024-04-27 16:25] LABS: TOTAL 25(OH) VITAMIN D 18.9 NG/ML (20.0-100.0)
[2024-04-28 15:07] LABS: % CD4+ LYMPHS 33.6 % (30.8-58.5); ABSOLUTE CD4 HELPER 840 /uL (359-1519); BASOPHILS 1 % (Not Estab.); EOSINOPHILS 1 % (Not Estab.); EOSINOPHILS ABSOLUTE 0.1 x10E3/uL (0.0-0.4); HCT 41.7 % (34.0-46.6); LYMPHOCYTES 32 % (Not Estab.); LYMPHOCYTES ABSOLUTE 2.5 x10E3/uL (0.7-3.1); MCH 33.9 pg (26.6-33.0); MCHC 33.6 g/dL (31.5-35.7); MCV 101 fL (79-97); MONOCYTES 5 % (Not Estab.); MONOCYTES ABSOLUTE 0.4 x10E3/uL (0.1-0.9); NEUTROPHILS 61 % (Not Estab.); NEUTROPHILS ABSOLUTE 4.7 x10E3/uL (1.4-7.0); PLT 294 x10E3/uL (150-450); RBC 4.13 x10E6/uL (3.77-5.28); RDW 11.9 % (11.7-15.4); WBC 7.7 x10E3/uL (3.4-10.8)
== END ==
LOC: M PLALAB 11:56
PROVIDERS: ATTEND Internal Medicine Infectious Disease
DX: E55.9 Vitamin D deficiency, unspecified (principal); B20 Human immunodeficiency virus [HIV] disease; R06.00 Dyspnea, unspecified; R63.5 Abnormal weight gain; Z79.899 Other long term (current) drug therapy; Z11.3 Encounter for screening for infections with a predominantly sexual mode of transmission; Z72.89 Other problems related to lifestyle

== ENCOUNTER → 2024-09-06 | Outpatient (REF) | payer MEDICARE ==
[2024-09-08 15:02] LABS: HPV APTIMA Detected (Not Detected)
== END ==
LOC: M SFHCWAGY 18:13
PROVIDERS: ATTEND Obstetrics & Gynecology
DX: Z12.4 Encounter for screening for malignant neoplasm of cervix (principal)
CPT/HCPCS: 87624; G0123

== ENCOUNTER → 2024-09-06 | Outpatient (CLI) | payer MEDICARE | LOC: M WHC 15:40 | PROVIDERS: ATTEND Obstetrics & Gynecology | DX: Z01.419 Encounter for gynecological examination (general) (routine) without abnormal findings (principal); Z53.9 Procedure and treatment not carried out, unspecified reason ==

== ENCOUNTER → 2024-10-05 | Outpatient (CLI) | payer MEDICARE ==
[~2024-10-05] MED LIST changes: +ISOVUE-370 76% 100ML VIAL As Ordered ONE; +LAMO-18; -LAMO25TA4
== END ==
LOC: M RAD 13:56
PROVIDERS: ATTEND Obstetrics & Gynecology
DX: C53.1 Malignant neoplasm of exocervix (principal)
CPT/HCPCS: 74177; Q9967

== ENCOUNTER 2025-01-31 12:03 | Emergency (ER) | payer MEDICARE, OTHER ==
[~2025-01-31] VITALS: Ht 162.6 cm; Wt 112.7 kg
[~2025-01-31 12:03] MED LIST changes: -ISOVUE-370 76% 100ML VIAL As Ordered ONE
[2025-01-31] MEDS ORDERED: CLON0.5T2 (12:13)
[2025-01-31] MEDS ORDERED: LISD50CA (12:13)
[2025-01-31] MEDS ORDERED: ESCITALOPRAM (12:13)
[2025-01-31 17:44] VITALS: BP 129/84; TEMP 97; O2SAT 96
== END 2025-01-31 17:50 | disposition home or self-care (01) ==
LOC: M ED 13:50
DX: S70.01XA Contusion of right hip, initial encounter (principal); S80.01XA Contusion of right knee, initial encounter; V03.10XA Pedestrian on foot injured in collision with car, pick-up truck or van in traffic accident, initial encounter; M25.78 Osteophyte, vertebrae; M51.34 Other intervertebral disc degeneration, thoracic region; M17.11 Unilateral primary osteoarthritis, right knee; M47.814 Spondylosis without myelopathy or radiculopathy, thoracic region; M47.817 Spondylosis without myelopathy or radiculopathy, lumbosacral region; Z88.8 Allergy status to other drugs, medicaments and biological substances; Z79.899 Other long term (current) drug therapy; Y92.009 Unspecified place in unspecified non-institutional (private) residence as the place of occurrence of the external cause; Y93.89 Activity, other specified; Y99.9 Unspecified external cause status

== ENCOUNTER 2025-02-09 20:56 | Emergency (ER) | payer MEDICARE ==
[~2025-02-09] VITALS: Ht 162.6 cm; Wt 110.3 kg
[~2025-02-09 20:56] MED LIST changes: +CLON0.5T2; +ESCITALOPRAM; +LISD50CA
[2025-02-09 21:37] LABS: KETONE, URINE AUTO RFX NEGATIVE (NEGATIVE); LEUKOCYTE ESTERASE UR AUTO RFX NEGATIVE (NEGATIVE); NITRITE, URINE AUTO RFX NEGATIVE (NEGATIVE); RBC, URINE AUTO RFX 2 /HPF (0-3); SQUAM EPITHELIAL CELL UR AURFX 4 /HPF (0-6); WBC, URINE AUTO RFX 0 /HPF (0-3)
[2025-02-09 22:08] VITALS: BP 119/79; TEMP 98.7; O2SAT 100
== END 2025-02-09 22:12 | disposition home or self-care (01) ==
LOC: M ED 20:56
DX: R39.15 Urgency of urination (principal); Z21 Asymptomatic human immunodeficiency virus [HIV] infection status; R51.9 Headache, unspecified; G40.909 Epilepsy, unspecified, not intractable, without status epilepticus; F31.9 Bipolar disorder, unspecified; Z85.41 Personal history of malignant neoplasm of cervix uteri; Z88.8 Allergy status to other drugs, medicaments and biological substances; Z79.899 Other long term (current) drug therapy

== ENCOUNTER 2025-03-08 16:02 | Emergency (ER) | payer MEDICARE ==
[~2025-03-08] VITALS: Ht 162.6 cm; Wt 107.5 kg
[2025-03-08] MEDS ORDERED: FLON1SPR NARES (18:58)
[2025-03-08 19:10] VITALS: BP 132/88; TEMP 97.1; O2SAT 100
== END 2025-03-08 19:14 | disposition home or self-care (01) ==
LOC: M ED 16:02
DX: H92.01 Otalgia, right ear (principal); R51.9 Headache, unspecified; G40.909 Epilepsy, unspecified, not intractable, without status epilepticus; F31.9 Bipolar disorder, unspecified; F90.9 Attention-deficit hyperactivity disorder, unspecified type; Z21 Asymptomatic human immunodeficiency virus [HIV] infection status; Z88.8 Allergy status to other drugs, medicaments and biological substances; Z79.899 Other long term (current) drug therapy

== ENCOUNTER 2025-03-20 14:07 | Emergency (ER) | payer MEDICARE ==
[~2025-03-20] VITALS: Ht 162.6 cm; Wt 107.7 kg
[~2025-03-20 14:07] MED LIST changes: +FLON1SPR NARES
[2025-03-20 17:21] VITALS: BP 104/72; TEMP 97.4; O2SAT 99
== END 2025-03-20 17:53 | disposition home or self-care (01) ==
LOC: M ED 14:07
DX: S83.91XA Sprain of unspecified site of right knee, initial encounter (principal); W01.198A Fall on same level from slipping, tripping and stumbling with subsequent striking against other object, initial encounter; F41.9 Anxiety disorder, unspecified; E11.9 Type 2 diabetes mellitus without complications; M17.11 Unilateral primary osteoarthritis, right knee; Y92.89 Other specified places as the place of occurrence of the external cause; Y93.89 Activity, other specified; Y99.0 Civilian activity done for income or pay; Z79.899 Other long term (current) drug therapy

== ENCOUNTER 2025-04-30 15:05 | Emergency (ER) | payer MEDICARE ==
[~2025-04-30] VITALS: Ht 162.6 cm; Wt 103.8 kg
[2025-04-30 17:20] LABS: KETONE, URINE AUTO RFX NEGATIVE (NEGATIVE); LEUKOCYTE ESTERASE UR AUTO RFX NEGATIVE (NEGATIVE); MUCUS, URINE RFX SMALL (NEGATIVE); NITRITE, URINE AUTO RFX NEGATIVE (NEGATIVE); RBC, URINE AUTO RFX 3 /HPF (0-3); SQUAM EPITHELIAL CELL UR AURFX 4 /HPF (0-6); WBC, URINE AUTO RFX 0 /HPF (0-3)
[2025-04-30 17:25] LABS: BASO # 0.1 10^3/uL (0.0-0.2); BASO % 0.8 % (0.0-1.0); EOS # 0.1 10^3/uL (0.0-0.5); EOS % 1.2 % (0.0-3.0); LYMPH # 1.8 10^3/uL (1.5-5.0); LYMPH % 29.9 % (24.0-44.0); MONO # 0.4 10^3/uL (0.0-0.8); MONO % 6.6 % (2.0-8.0); NEUTROPHILS # 3.6 10^3/uL (1.5-8.5); NEUTROPHILS % 61.2 % (36.0-66.0); PLATELET COUNT, AUTOMATED 265 10^3/uL (150-450)
[2025-04-30] MEDS: NS (Normal Saline) 0.9% 1,000 ML IV ONE (17:27)
[2025-04-30] MEDS: ACETAMINOPHEN *IV* 1,000 MG in IV 1 EA IV ONE (17:28)
[2025-04-30 17:46] LABS: HCG, SERUM QUANTITATIVE < 2.6 MIU/ML (<4.2)
[2025-04-30 17:47] LABS: ALT/SGPT 32 U/L (7.0-40); AST/SGOT 21 U/L (<34); CALCIUM LEVEL 8.5 MG/DL (8.5-10.1); CARBON DIOXIDE LEVEL 32 MMOL/L (20-31); CHLORIDE LEVEL 104 MMOL/L (98-107); CREATININE FOR GFR 0.76 MG/DL (0.55-1.30); GLOMERULAR FILTRATION RATE > 90.0 (>58); POTASSIUM SERUM 3.6 MMOL/L (3.5-5.1); SODIUM LEVEL 144 MMOL/L (136-145)
[2025-04-30] MEDS ORDERED: ISOVUE-370 76% 100 ML VIAL As Ordered ONE (18:02)
[2025-04-30 21:00] VITALS: BP 111/68; TEMP 97.8; O2SAT 97
== END 2025-04-30 21:02 | disposition home or self-care (01) ==
LOC: M ED 15:05
DX: R10.9 Unspecified abdominal pain (principal); K80.20 Calculus of gallbladder without cholecystitis without obstruction; C56.9 Malignant neoplasm of unspecified ovary; Z88.8 Allergy status to other drugs, medicaments and biological substances; Z79.899 Other long term (current) drug therapy
CPT/HCPCS: 74177; 80048; 80076; 81001; 83605; 83690; 84145; 84702; 85025; 87486; 87581; 87633; 87798; 96365; 96366; 99284; J0134; Q9967